=== PATIENT | male | born 1960 | race Two or more races ===

== ENCOUNTER 2019-10-17 09:35 | Emergency (ER) | payer OTHER ==
[~2019-10-17] VITALS: Ht 165.1 cm; Wt 54.6 kg
[2019-10-17 11:07] LABS: Basophils # (auto) 0 10 ^3/uL (0-0.2); Basophils % (auto) 0.5 % (0.0-2.0); Eosinophils # (auto) 0.1 10 ^3/uL (0-0.8); Eosinophils % (auto) 0.8 % (0.0-7.0); Hemoglobin 16.5 g/dL (13.5-17.5); Lymphocytes # (auto) 1.5 10 ^3/uL (0.4-5.4); Lymphocytes % (auto) 21.1 % (10.0-50.0); Mean Corpuscular Hgb Conc. 33.7 g/dL (32.0-36.0); Monocytes # (auto) 0.5 10 ^3/uL (0-1.3); Monocytes % (auto) 6.3 % (0.0-12.0); Neutrophils # (auto) 5.2 10 ^3/uL (1.6-8.6); Neutrophils % (auto) 71.3 % (37.0-80.0); Nucleated Red Blood Cells % 0.6 %; Platelet Count (auto) 163 10^3/uL (140-450); Red Cell Distribution Width 14.1 % (11.8-14.3); White Blood Cell 7.3 10^3/uL (4.4-10.8)
[2019-10-17 11:29] LABS: Albumin 3.7 g/dL (3.4-5.0); Anion Gap 7 (5-15); Blood Urea Nitrogen 12 mg/dL (7-18); Carbon Dioxide 27 mmol/L (21-32); Chloride 99 mmol/L (98-107); Glucose 195 mg/dL (74-106); Potassium 4.2 mmol/L (3.5-5.1); Sodium 133 mmol/L (136-145)
[2019-10-17 11:35] LABS: Alanine Aminotransferase 15 U/L (16-61); Alkaline Phosphatase 90 U/L (45-117); Aspartate Aminotransferase 12 U/L (15-37); Bilirubin, Total 0.9 mg/dL (0.2-1.0); GFR African American 127 mL/min; GFR Non-African American 105 mL/min; Total Protein 7.9 g/dL (6.4-8.2)
[2019-10-17 15:20] VITALS: BP 121/74
== END 2019-10-17 15:27 | disposition home or self-care (01) ==
LOC: ER 09:35
DX: E11.42 Type 2 diabetes mellitus with diabetic polyneuropathy (principal)
CPT/HCPCS: 36415; 72131; 80053; 82962; 84484; 85025; 93005

== ENCOUNTER 2023-02-01 13:30 | Emergency (ER) | payer OTHER ==
[~2023-02-01] VITALS: Ht 167.6 cm; Wt 75.4 kg
[2023-02-01 14:45] LABS: Basophils # (auto) 0 10 ^3/uL (0-0.2); Basophils % (auto) 0.4 % (0.0-2.0); Eosinophils # (auto) 0.1 10 ^3/uL (0-0.8); Eosinophils % (auto) 1.4 % (0.0-7.0); Hematocrit 28.9 % (41.0-53.0); Hemoglobin 9.8 g/dL (13.5-17.5); Lymphocytes % (auto) 21.3 % (10.0-50.0); Mean Corpuscular Hemoglobin 29.6 pg (28.0-32.0); Monocytes # (auto) 0.4 10 ^3/uL (0-1.3); Monocytes % (auto) 8.1 % (0.0-12.0); Neutrophils # (auto) 3.2 10 ^3/uL (1.6-8.6); Neutrophils % (auto) 68.8 % (37.0-80.0); Red Blood Cells 3.32 10^6/uL (4.5-5.90); Red Cell Distribution Width 15.8 % (11.8-14.3); White Blood Cell 4.6 10^3/uL (4.4-10.8)
[2023-02-01] MEDS ORDERED: OCTREOTIDE ACETATE 500 MCG in SODIUM CHL 0.9% 99 ML IV SCH (15:00)
[2023-02-01] MEDS ORDERED: OCTREOTIDE ACETATE 100 MCG in SODIUM CHL 0.9% 50 ML IV ONE (15:00)
[2023-02-01 15:01] LABS: INR 1.1 (0.9-1.15); Partial Thromboplastin Time 25.5 SEC (24.5-34.5); Prothrombin Time 11.5 sec (9.3-11.8)
[2023-02-01 15:12] LABS: Alanine Aminotransferase 14 U/L (7-40); Albumin 3.9 g/dL (3.2-4.8); Alkaline Phosphatase 114 U/L (46-116); Anion Gap 4 (5-15); Aspartate Aminotransferase 19 U/L (13-40); BUN/Creatinine Ratio 16.9 (10.0-20.0); Blood Urea Nitrogen 14 mg/dL (9-23); Calcium 8.7 mg/dL (8.5-10.1); Carbon Dioxide 30 mmol/L (20-30); Chloride 106 mmol/L (98-107); Glucose 136 mg/dL (74-106); Potassium 3.9 mmol/L (3.5-5.1); Sodium 140 mmol/L (136-145)
[2023-02-01 15:13] LABS: Bilirubin, Total 0.4 mg/dL (0.2-1.0); Total Protein 6.2 g/dL (5.7-8.2)
[2023-02-01] MEDS ORDERED: PANTOPRAZOLE 40 MG/10 ML VIAL INJ IV ONE (15:45)
[2023-02-01] MEDS ORDERED: GABAPENTIN 300 MG CAP PO ONE (18:15)
[2023-02-01 19:57] VITALS: PULSE 84; RESP 14; O2SAT 99
[2023-02-01 20:59] VITALS: BP 106/65; PULSE 85; RESP 16; TEMP 98.2; O2SAT 98
== END 2023-02-01 21:18 | disposition short-term general hospital (02) ==
LOC: ER 13:30
DX: D64.9 Anemia, unspecified (principal); K92.1 Melena; R11.10 Vomiting, unspecified; R10.84 Generalized abdominal pain; Z98.890 Other specified postprocedural states; Z79.899 Other long term (current) drug therapy
CPT/HCPCS: 36415; 71045; 74176; 80053; 82962; 83690; 84484; 85025; 85610; 85730; 86850; 86900; 86901; 93005; 96374; 99291; C9113

== ENCOUNTER 2023-10-13 16:58 | Emergency (ER) | payer OTHER ==
[~2023-10-13] VITALS: Ht 170.2 cm; Wt 78.0 kg
[2023-10-13 17:35] VITALS: BP 102/67; RESP 14; TEMP 99.3; O2SAT 98
[2023-10-13 17:36] VITALS: PULSE 89
[2023-10-13] MEDS: IBUPROFEN 600 MG TAB PO ONE (20:15)
== END 2023-10-13 21:56 | disposition home or self-care (01) ==
LOC: ER 16:58
DX: M54.6 Pain in thoracic spine (principal); M54.16 Radiculopathy, lumbar region; R91.1 Solitary pulmonary nodule; E11.9 Type 2 diabetes mellitus without complications; Z98.890 Other specified postprocedural states
CPT/HCPCS: 71250; 72070; 74176; 93005